=== PATIENT | male | born 1985 | race Hispanic/Latino ===

== ENCOUNTER 2017-01-31 11:04 | Emergency (ER) | payer BC, SELFPAY ==
[2017-01-31] MEDS ORDERED: Lidocaine 1% (PF) 30 ML VIAL ONE (11:58)
--- NOTE | 2017-01-31 12:35 | RAD ---
3 VIEWS LEFT FOURTH FINGER: Date: 01/31/17 COMPARISON: None. HISTORY: Laceration. FINDINGS: No fracture or evidence of dislocation. No radiopaque foreign body. IMPRESSION: No acute osseous abnormality. POS: [facility]
[2017-01-31] MEDS ORDERED: Adacel (T-DAP) 0.5 ML VIAL ONE (12:41)
== END 2017-01-31 12:58 | disposition home or self-care (01) ==
LOC: ERS 11:04
DX: S61.215A Laceration without foreign body of left ring finger without damage to nail, initial encounter (principal); F17.210 Nicotine dependence, cigarettes, uncomplicated
CPT/HCPCS: 12001; 90471; 90715; J2001

== ENCOUNTER 2018-06-26 10:59 | Emergency (ER) | payer BC ==
[2018-06-26] MEDS ORDERED: Ibuprofen 200 MG TAB ONE (12:50)
== END 2018-06-26 12:50 | disposition home or self-care (01) ==
LOC: ERS 10:59
DX: G56.02 Carpal tunnel syndrome, left upper limb (principal); F17.210 Nicotine dependence, cigarettes, uncomplicated
CPT/HCPCS: 99283